=== PATIENT | male | born 1965 | race Caucasian/White ===

== ENCOUNTER 2016-10-10 11:00 | Emergency (ER) | payer OTHER ==
[~2016-10-10] VITALS: Ht 185.4 cm; Wt 158.8 kg
[~2016-10-10 11:00] MED LIST: ACTOS 30 MG TAB30 M1 PO; AMARYL4 MG PO; ASPIR 8181 MG PO; ASPIRIN81 M2; IBUPROFEN 600600 M1 PO; KOMBIGLYZE XR1 EAC2 PO; LEVOTHYROXINE 0.1 MG PO; LOSARTAN POTASS50 MG PO; MEN'S MULTI-VI1 EACH PO
[2016-10-10] MEDS ORDERED: KEFLEX500 MG PO (12:36)
[2016-10-10] MEDS ORDERED: HYDROCODONE-AP1 EAC6 PO (12:36)
== END 2016-10-10 12:57 | disposition home or self-care (01) ==
LOC: ER 11:00
DX: S92.425A Nondisplaced fracture of distal phalanx of left great toe, initial encounter for closed fracture (principal); I10 Essential (primary) hypertension; E11.9 Type 2 diabetes mellitus without complications; W20.8XXA Other cause of strike by thrown, projected or falling object, initial encounter; Y93.89 Activity, other specified; Y92.89 Other specified places as the place of occurrence of the external cause; Y99.8 Other external cause status

== ENCOUNTER → 2018-11-22 | Outpatient (CLI) | payer OTHER ==
[~2018-11-22] MED LIST changes: -ASPIRIN81 M2; +ASPIRIN81 M2 PO; +HYDROCODONE-AP1 EAC6 PO; +JANUMET 50-1,01 EACH PO; +KEFLEX500 MG PO; +LOSARTAN POTAS100 MG PO; +NOVOLOG100 UNIT/1 SUBQ; +SYNTHROID300 MCG PO; +TRESIBA FL100 UNIT/1 SUBQ
== END ==
LOC: CAT 10:12
DX: Z13.6 Encounter for screening for cardiovascular disorders (principal); E78.00 Pure hypercholesterolemia, unspecified; I25.10 Atherosclerotic heart disease of native coronary artery without angina pectoris

== ENCOUNTER 2020-02-01 11:31 | Emergency (ER) | payer OTHER ==
[~2020-02-01] VITALS: Ht 185.4 cm; Wt 105.7 kg
[2020-02-01] MEDS ORDERED: ALLEGRA ALLERG180 MG PO (11:38)
[2020-02-01 12:32] VITALS: BP 143/82
== END 2020-02-01 12:36 | disposition home or self-care (01) ==
LOC: ER 11:31
DX: S63.694A Other sprain of right ring finger, initial encounter (principal); I10 Essential (primary) hypertension; E11.9 Type 2 diabetes mellitus without complications; Z90.49 Acquired absence of other specified parts of digestive tract; Z79.4 Long term (current) use of insulin; Z88.8 Allergy status to other drugs, medicaments and biological substances; X58.XXXA Exposure to other specified factors, initial encounter; Y93.89 Activity, other specified; Y92.89 Other specified places as the place of occurrence of the external cause; Y99.8 Other external cause status

== ENCOUNTER → 2020-09-06 | Outpatient (CLI) | payer OTHER ==
[~2020-09-06] MED LIST changes: +ALLEGRA ALLERG180 MG PO
== END ==
LOC: LAB 08:44
PROVIDERS: ATTEND Family Medicine
DX: Z20.828 Contact with and (suspected) exposure to other viral communicable diseases (principal)

== ENCOUNTER 2020-11-01 12:34 | Emergency (ER) | payer OTHER ==
[~2020-11-01] VITALS: Ht 185.4 cm; Wt 108.4 kg
[2020-11-01 13:16] LABS: ABSOLUTE NEUTROPHILS 4.8 thou/uL (1.4-8.2); BASOPHILS 0.8 % (0.0-2.0); EOSINOPHILS 1.7 % (0.0-3.0); HEMATOCRIT 46.3 % (42.0-52.0); HEMOGLOBIN 15.7 gm/dL (14.0-18.0); LYMPHOCYTES 20.7 % (24.0-44.0); MCH 30.4 pg (26.0-34.0); MCHC 33.9 g/dL (28.0-37.0); MCV 89.7 fL (80.0-100.0); MONOCYTES 8.1 % (1.0-8.0); PLATELET COUNT 285 thou/uL (150-400); POLYS 68.7 % (36.0-66.0); RBC 5.16 mil/uL (4.50-6.00); RDW 13.1 % (10.5-14.5)
[2020-11-01 13:28] LABS: CALCIUM 9.9 mg/dL (8.5-10.1); POTASSIUM 4.4 mmol/L (3.5-5.1)
[2020-11-01 13:31] LABS: ALBUMIN 4.7 g/dL (3.4-5.0); TOTAL BILIRUBIN 0.6 mg/dL (0.2-1.0); TOTAL PROTEIN 8.1 g/dL (6.4-8.2)
[2020-11-01] MEDS ORDERED: HYDROCODON-ACE1 EAC7 PO (14:35)
[2020-11-01 14:36] VITALS: BP 159/81
[2020-11-01 15:03] LABS: AMP/METHAMP Negative (Negative); BARBITURATES Negative (Negative); BENZODIAZEPINES Negative (Negative); COCAINE Negative (Negative); METHADONE Negative (Negative); OPIATES Negative (Negative); PCP Negative (Negative)
== END 2020-11-01 14:36 | disposition home or self-care (01) ==
LOC: ER 12:34
PROVIDERS: Nurse Practitioner
DX: R07.89 Other chest pain (principal); E66.9 Obesity, unspecified; I10 Essential (primary) hypertension; E11.9 Type 2 diabetes mellitus without complications; Z88.8 Allergy status to other drugs, medicaments and biological substances; Z79.899 Other long term (current) drug therapy; Z79.4 Long term (current) use of insulin; W00.2XXA Other fall from one level to another due to ice and snow, initial encounter; Y93.89 Activity, other specified; Y92.69 Other specified industrial and construction area as the place of occurrence of the external cause; Y99.9 Unspecified external cause status

== ENCOUNTER → 2021-02-07 | Outpatient (CLI) | payer OTHER ==
[~2021-02-07] MED LIST changes: +HYDROCODON-ACE1 EAC7 PO
== END ==
LOC: LAB 12:33
PROVIDERS: ATTEND Family Medicine
DX: R31.9 Hematuria, unspecified (principal)

== ENCOUNTER → 2021-04-10 | Outpatient (CLI) | payer OTHER ==
[2021-04-10 09:02] LABS: CREATININE 0.9 mg/dL (0.7-1.3)
== END ==
LOC: CAT 08:12
PROVIDERS: ATTEND Urology
DX: N32.89 Other specified disorders of bladder (principal); R31.9 Hematuria, unspecified